=== PATIENT | female | born 1990 | race Caucasian/White ===

== ENCOUNTER 2020-09-08 15:28 | Outpatient (REF) | payer MEDICARE, MEDICAID, SELFPAY ==
--- NOTE | 2020-09-08 15:00 | PAPFT_PTH ---
PATIENT: Nava Manzano LOC: [facility] U#:[id number] AGE/SX: 29/F ROOM: RE09/08/[address]: Kassy Smith : 1990 BED: DIS: 09/08/2020 SPEC #: [id number] RECD: 09/08/20 18:11 STATUS: CONOR REMarcia #: [id number] SURESH: 09/08/20 15:[address]: Kassy Smith DEPT: [facility] Cytology RECD BY: Gwen Shetty ENTERED: 09/08/20 18:12 SP TYPE: PAPFT OTHR DR: Jenna Pompa Tissues: 1 - CX/ENDOCX FOR PAP SMEARS Procedures: PAP THIN PREP/[facility] Screening Comments: [id number]
== END 2020-09-08 15:29 | disposition home or self-care (01) ==
LOC: NCHCN 15:28
PROVIDERS: PCP Nurse Practitioner Family; Visit Provider Nurse Practitioner Family
DX: Z12.4 Encounter for screening for malignant neoplasm of cervix (principal)
CPT/HCPCS: 88142

== ENCOUNTER 2021-12-29 17:43 | Outpatient (REF) | payer MEDICARE, MEDICAID, SELFPAY ==
[2021-12-29 21:18] LABS: ALT 29 U/L (14-59); AST 22 U/L (15-37); Albumin 4.5 g/dL (3.4-5.0); Alkaline Phosphatase 80 U/L (46-116); Anion Gap 10.7 mmol/L (3-11); BUN 12 mg/dL (7-18); Bilirubin, Total 0.4 mg/dL (0.2-1.0); CO2 27.3 mmol/L (21.0-32.0); CREATININE 0.9 mg/dL (0.55-1.02); Calcium 9.3 mg/dL (8.5-10.1); Chloride 101 mmol/L (98-107); Glucose 85 mg/dL (74-106); Potassium 3.9 mmol/L (3.5-5.1); Sodium 139 mmol/L (136-145); Total Protein 8.6 g/dL (6.4-8.2)
[2021-12-29 21:42] LABS: Hemoglobin A1C 5.5 % (<5.7)
[2022-01-01 13:35] LABS: Lamotrigine 1.8 mcg/mL (2.5 - 15.0)
== END 2021-12-29 17:44 | disposition home or self-care (01) ==
LOC: NCHCN 17:43
PROVIDERS: PCP Nurse Practitioner Family; Visit Provider Nurse Practitioner Family
DX: F32.9 Major depressive disorder, single episode, unspecified (principal); E66.9 Obesity, unspecified; F41.9 Anxiety disorder, unspecified
CPT/HCPCS: 80053; 80175; 83036

== ENCOUNTER 2022-06-07 16:43 | Outpatient (REF) | payer MEDICARE, MEDICAID, SELFPAY ==
[2022-06-07 18:31] LABS: HCT 44.6 % (36.0-46.0); HGB 14.9 g/dL (11.2-15.7); MCH 29.2 pg (27.0-33.0); MCHC 33.4 % (32.0-36.0); MCV 88 fL (80-95); Platelet Count 376 10^3/uL (130-400); RDW-SD 41.9 fL; WBC 12.07 10^3/uL (4.4-10.8)
== END 2022-06-07 16:44 | disposition home or self-care (01) ==
LOC: NCHCN 16:43
PROVIDERS: PCP Nurse Practitioner Family; Visit Provider Nurse Practitioner Family
DX: G47.61 Periodic limb movement disorder (principal)
CPT/HCPCS: 85027

== ENCOUNTER 2022-09-05 17:49 | Outpatient (REF) | payer MEDICARE, MEDICAID, SELFPAY ==
[2022-09-05 20:09] LABS: Bilirubin Negative (Negative); Blood Moderate (Negative); Clarity Clear (Clear); Glucose Negative (Negative); Ketones Negative (Negative); Leukocyte Esterase Negative (Negative); Nitrite Negative (Negative); Urobilinogen 0.2 mg/dL (Up to 0.2); pH 6.5 (5-8)
[2022-09-05 20:23] LABS: Bacteria Negative HPF (Negative); C & S Indicated? No; Casts Negative LPF (Negative); Crystals Negative HPF (Negative); Epithelial Cells Few HPF (Negative); Mucus Negative (Negative); WBC 0-2 HPF (0-5)
== END 2022-09-05 17:50 | disposition home or self-care (01) ==
LOC: NCHCN 17:49
PROVIDERS: PCP Nurse Practitioner Family; Visit Provider Nurse Practitioner Family
DX: N89.8 Other specified noninflammatory disorders of vagina (principal); R31.9 Hematuria, unspecified
CPT/HCPCS: 81003; 81015; 87480; 87510; 87660

== ENCOUNTER 2022-10-06 15:47 | Outpatient (REF) | payer MEDICARE, MEDICAID, SELFPAY ==
[2022-10-06 19:20] LABS: ALT 31 U/L (14-59); AST 23 U/L (15-37); Albumin 4.5 g/dL (3.4-5.0); Alkaline Phosphatase 86 U/L (46-116); Anion Gap 8.8 mmol/L (3-11); BUN 13 mg/dL (7-18); Bilirubin, Total 0.4 mg/dL (0.2-1.0); CO2 25.2 mmol/L (21.0-32.0); CREATININE 0.8 mg/dL (0.55-1.02); Calcium 9.6 mg/dL (8.5-10.1); Calculated LDL 97 mg/dL (<100); Chloride 104 mmol/L (98-107); Cholesterol 164 mg/dL (<200); Estimated GFR 102.22 (mL/min/1.73m2); Glucose 80 mg/dL (74-106); HDL Cholesterol 51 mg/dL (40-60); Potassium 3.6 mmol/L (3.5-5.1); Sodium 138 mmol/L (136-145); Total Protein 8.7 g/dL (6.4-8.2); Triglyceride 83 mg/dL (<150)
[2022-10-06 19:31] LABS: Hemoglobin A1C 5.1 % (<5.7)
[2022-10-10 13:25] LABS: Lamotrigine 1.7 mcg/mL (3.0-15.0)
== END 2022-10-06 15:48 | disposition home or self-care (01) ==
LOC: NCHCN 15:47
PROVIDERS: PCP Nurse Practitioner Family; Visit Provider Nurse Practitioner Family
DX: F32.89 Other specified depressive episodes (principal); E66.9 Obesity, unspecified; F84.8 Other pervasive developmental disorders; Z79.899 Other long term (current) drug therapy; Z51.81 Encounter for therapeutic drug level monitoring
CPT/HCPCS: 80053; 80061; 80175; 83036

== ENCOUNTER 2023-11-08 18:29 | Outpatient (REF) | payer MEDICARE, MEDICAID, SELFPAY ==
[2023-11-08 20:47] LABS: ALT 33 U/L (14-59); AST 21 U/L (15-37); Albumin 4.8 g/dL (3.4-5.0); Alkaline Phosphatase 97 U/L (46-116); Anion Gap 10.4 mmol/L (3-11); BUN 13 mg/dL (7-18); Bilirubin, Total 0.31 mg/dL (0.2-1.0); CO2 28.6 mmol/L (21.0-32.0); Calcium 9.6 mg/dL (8.5-10.1); Chloride 103 mmol/L (98-107); Estimated GFR 77.72 (mL/min/1.73m2); Glucose 70 mg/dL (74-106); Potassium 3.5 mmol/L (3.5-5.1); Sodium 142 mmol/L (136-145); Total Protein 8.9 g/dL (6.4-8.2)
== END 2023-11-08 18:30 | disposition home or self-care (01) ==
LOC: NCHCN 18:29
PROVIDERS: PCP Nurse Practitioner Family; Visit Provider Nurse Practitioner Family
DX: E66.01 Morbid (severe) obesity due to excess calories (principal); Z68.41 Body mass index [BMI] 40.0-44.9, adult
CPT/HCPCS: 80053

== ENCOUNTER 2024-03-26 17:08 | Outpatient (REF) | payer MEDICARE, MEDICAID, SELFPAY ==
--- NOTE | 2024-03-26 15:15 | PAPFT_PTH ---
PATIENT: Nava Manzano LOC: [facility]#:[id number] AGE/SX: 33/F ROOM: RE03/26/[address]: Cody Chen : 1990 BED: DIS: 03/26/2024 SPEC #: [id number] RECD: 03/26/24 18:15 STATUS: CONOR REQ #: [id number] SURESH: 03/26/24 15:[address] Cytology RECD BY: Gwen Shetty ENTERED: 03/26/24 18:16 SP TYPE: PAPFT OTHR DR: Jenna Pompa Tissues: 1 - CX/ENDOCX FOR PAP SMEARS Procedures: PAP THIN PREP/[facility] Screening HPV DNA PROBE Comments: [id number] (HPV 16 & 18/45)
== END 2024-03-26 17:09 | disposition home or self-care (01) ==
LOC: NCHCN 17:08
PROVIDERS: PCP Nurse Practitioner Family; Visit Provider Nurse Practitioner Family
DX: Z12.4 Encounter for screening for malignant neoplasm of cervix (principal)
CPT/HCPCS: 88142; 87624

== ENCOUNTER 2024-07-19 14:45 | Outpatient (REF) | payer MEDICARE, MEDICAID, SELFPAY ==
[2024-07-19 20:00] LABS: WBC Negative HPF (0-5)
[2024-07-19 20:01] LABS: Bacteria Negative HPF (Negative); C & S Indicated? No; Casts Negative LPF (Negative); Crystals Negative HPF (Negative); Epithelial Cells Negative HPF (Negative); Mucus Negative (Negative)
== END 2024-07-19 14:46 | disposition home or self-care (01) ==
LOC: NCHCN 14:45
PROVIDERS: Visit Provider Physician Assistant
DX: R30.0 Dysuria (principal); R82.89 Other abnormal findings on cytological and histological examination of urine
CPT/HCPCS: 81015; 87086; 87480; 87510; 87660

== ENCOUNTER 2024-10-08 19:44 | Outpatient (REF) | payer MEDICARE, MEDICAID, SELFPAY ==
[2024-10-08 19:38] LABS: ALT 33 U/L (14-59); AST 25 U/L (15-37); Albumin 4.5 g/dL (3.4-5.0); Alkaline Phosphatase 88 U/L (46-116); Anion Gap 9.1 mmol/L (3-11); BUN 12 mg/dL (7-18); Bilirubin, Total 0.5 mg/dL (0.2-1.0); CO2 25.9 mmol/L (21.0-32.0); CREATININE 0.8 mg/dL (0.55-1.02); Calcium 9.8 mg/dL (8.5-10.1); Chloride 104 mmol/L (98-107); Estimated GFR 100.96 (mL/min/1.73m2); Glucose 87 mg/dL (74-106); Potassium 3.9 mmol/L (3.5-5.1); Sodium 139 mmol/L (136-145); Total Protein 8.4 g/dL (6.4-8.2)
== END 2024-10-08 19:45 | disposition home or self-care (01) ==
LOC: NCHCN 19:44
PROVIDERS: Visit Provider Nurse Practitioner Family
DX: Z13.1 Encounter for screening for diabetes mellitus (principal)
CPT/HCPCS: 80053

== ENCOUNTER → 2025-02-17 12:50 | Outpatient (BNVA) | payer MEDICARE, MEDICAID, SELFPAY | PROVIDERS: PCP Nurse Practitioner Family; Referring Provider Nurse Practitioner Family; Visit Provider Nurse Practitioner Gerontology | DX: N30.10 Interstitial cystitis (chronic) without hematuria (principal); N32.81 Overactive bladder; R31.9 Hematuria, unspecified; N18.9 Chronic kidney disease, unspecified; R39.9 Unspecified symptoms and signs involving the genitourinary system | CPT/HCPCS: 99205; 81002; 51798 ==

== ENCOUNTER 2025-03-25 12:09 | Outpatient (REF) | payer MEDICARE, MEDICAID, SELFPAY ==
[2025-03-25 19:28] LABS: HCT 43.8 % (36.0-46.0); HGB 14.4 g/dL (11.2-15.7); MCH 28.7 pg (27.0-33.0); MCHC 32.9 % (32.0-36.0); MCV 87 fL (80-95); MPV 10.6 fL (8.0-11.0); Platelet Count 367 10^3/uL (130-400); RBC 5.01 10^6/uL (3.93-5.22); RDW 13.4 % (11.7-14.6); RDW-SD 43.3 fL; WBC 10.27 10^3/uL (4.4-10.8)
== END 2025-03-25 12:10 | disposition home or self-care (01) ==
LOC: NCHCN 12:09
PROVIDERS: PCP Nurse Practitioner Family; Visit Provider Nurse Practitioner Family
DX: R68.83 Chills (without fever) (principal)
CPT/HCPCS: 85027